=== PATIENT | female | born 2000 | race Caucasian/White ===

== ENCOUNTER 2022-01-18 00:15 | Day surgery (SDC) | payer BC, SELFPAY ==
[2022-01-16 12:00] VITALS: BMI 35.5
--- NOTE | 2022-01-17 12:41 | PM.HPGS ---
History of Present Illness History of Present Illness Consent: Risks, benefits, and alternatives have been discussed and questions answered. Patient agrees to proceed with procedure. Chief complaint: dysphagia Narrative: Chris Smalls is a 21 year old female with dysphagia for solid food. This has been going on for several years. Her father has a similar problem. She will have solid foods such as meat get caught in the mid chest and will take several minutes for it to finally pass. Review of Systems Review of Systems: All systems reviewed & are unremarkable except as noted in HPI and below PMFSH Past Medical History Medical History GERD (gastroesophageal reflux disease) Social History Social History Smoking status: Never smoker Second hand tobacco smoke exposure: No Alcohol intake: current Drinks per week: 1 Alcohol use details: socially Substance use: current Substance use type: does not use Last use: socially Living arrangements: with family Additional occupation/education comments: Dental Hygienist Gender identity (if verbalized by the patient): Female Sexual Orientation (if Verbalized by the Patient): Straight or Heterosexual Spiritual care concerns: No Meds Home Medications and Allergies Home Medications Medication Instructions Recorded Confirmed Type bupropion HCl 300 mg 24 hr tablet, 300 mg PO DAILY 11/30/21 01/18/22 History extended release mometasone-ammonium lactate 0.1 pkg topical 11/30/21 11/30/21 History %-12 % topical combo pack multivitamin 1 tablet PO DAILY 11/30/21 01/18/22 History etonogestrel 0.12 mg-ethinyl 1 vag ring vaginal ONCE #4 ea 12/14/21 01/18/22 Rx estradiol 0.015 mg/24 hr vaginal ring (NuvaRing) Allergies Allergy/AdvReac Type Severity Reaction Status Date / Time No Known Allergies Allergy Verified 01/18/22 06:59 Exam Const: General: alert Orientation/consciousness: patient oriented x3 Resp: Auscultation: clear to auscultation bilaterally Cardio: Rhythm: regular rhythm GI: GI Palp: Yes Soft to palpation and No Tenderness to palpation present (GI) Neuro: General: patient oriented x3 Assessment and Plan Assessment and plan (1) Dysphagia: Code(s): R13.10 - Dysphagia, unspecified Status: Acute Assessment and Plan: EGD with possible biopsy or dilatation or cautery.
[2022-01-18 07:00] VITALS: BP 123/74; PULSE 59; RESP 18; TEMP 36.2; O2SAT 98; BMI 35.3
[2022-01-18] MEDS: LACTATED RINGERS 1,000 ML 150 ML IV CONT (07:18)
--- NOTE | 2022-01-18 07:29 | WPDANESEPPF ---
Anes - Initial Pre Proc Eval Procedure: Operation Date: 01/18/22 08:00 Proposed Procedures p Esophagogastroduodenoscopy - Edward Staton MD Date/Time: 01/18/22 07:29 Surgeon: Edward Staton MD Pre Op Diagnosis: dysphagia Patient Data Age: 21 Gender: F Height: 1.73 m Weight: 105.4 kg Last Vital Signs Temp 97.2 F L 01/18/22 07:00 Pulse 59 L 01/18/22 07:00 Resp 18 01/18/22 07:00 BP 123/74 01/18/22 07:00 Pulse Ox 98 01/18/22 07:00 O2 Del Method Room Air 01/18/22 07:00 Allergies Allergy/AdvReac Type Severity Reaction Status Date / Time No Known Allergies Allergy Verified 01/18/22 06:59 Home Medications Medication Instructions Recorded Confirmed Type bupropion HCl 300 mg 24 hr tablet, 300 mg PO DAILY 11/30/21 01/18/22 History extended release mometasone-ammonium lactate 0.1 pkg topical 11/30/21 11/30/21 History %-12 % topical combo pack multivitamin 1 tablet PO DAILY 11/30/21 01/18/22 History etonogestrel 0.12 mg-ethinyl 1 vag ring vaginal ONCE #4 ea 12/14/21 01/18/22 Rx estradiol 0.015 mg/24 hr vaginal ring (NuvaRing) Patient hx anesthesia problems: none Family hx anesthesia problems: none Results Review: All pre-operative results and documents have been reviewed as part of the pre-operative evaluation. [facility] Past Medical History Medical History GERD (gastroesophageal reflux disease) Social History Social History (Updated 12/14/21 @ 10:14 by Alexa Sosa MA) Smoking status: Never smoker Second hand tobacco smoke exposure: No Alcohol intake: current Drinks per week: 1 Alcohol use details: socially Substance use: current Substance use type: does not use Last use: socially Living arrangements: with family Additional occupation/education comments: Dental Hygienist Gender identity (if verbalized by the patient): Female Sexual Orientation (if Verbalized by the Patient): Straight or Heterosexual Spiritual care concerns: No Anes - Eval Final PreProcedure Day of Procedure 01/18/22 07:29 Patient weight: obese Heart: regular rate and rhythm Lungs: clear to auscultation Airway: Mallampati scale class II Neurological: alert and oriented Last oral intake: >/= 8 hours ASA classification: II Emergent: no Anesthetic plan: proceed Anesthesia type and monitoring: general GIVS and standard monitoring Results Review: All pre-operative results and documents have been reviewed as part of the pre-operative evaluation. Informed Consent: The patient's anesthetic plan and its attendant risks and benefits were discussed with the patient/family/POA. Questions were solicited and answers provided to the satisfaction of the patient/family/POA.
[2022-01-18] MEDS: BENZOCAINE (*SP) 60 ML SPRAY CAN (HURRICAINE) 1 SPRAY MUCOUS MEM (07:51)
[2022-01-18 08:08] VITALS: BP 124/71; PULSE 69; RESP 23; O2SAT 99
[2022-01-18 08:18] VITALS: BP 117/65; PULSE 55; RESP 19; O2SAT 98
[2022-01-18 08:28] VITALS: BP 118/68; PULSE 52; RESP 16; O2SAT 98
== END 2022-01-18 08:34 | disposition home or self-care (01) ==
PROVIDERS: PCP Nurse Practitioner Family; Visit Provider Internal Medicine Gastroenterology
PROC: 0DJ08ZZ Inspection of Upper Intestinal Tract, Via Natural or Artificial Opening Endoscopic (ICD-10-PCS; CPT 43235; principal; 2022-01-18 08:00)
DX: R13.19 Other dysphagia (principal); K22.2 Esophageal obstruction; K26.9 Duodenal ulcer, unspecified as acute or chronic, without hemorrhage or perforation; K21.9 Gastro-esophageal reflux disease without esophagitis; E66.9 Obesity, unspecified; Z68.35 Body mass index [BMI] 35.0-35.9, adult
CPT/HCPCS: 43249; 43239; 87081; 88305; C1726; J2704; J7120

== ENCOUNTER 2022-04-11 00:04 | Day surgery (SDC) | payer BC, SELFPAY ==
[2022-02-08 13:43] VITALS: BMI 35.0
[2022-04-06 16:23] VITALS: BMI 35.0
--- NOTE | 2022-04-10 16:54 | PM.HPGS ---
History of Present Illness History of Present Illness Consent: Risks, benefits, and alternatives have been discussed and questions answered. Patient agrees to proceed with procedure. Chief complaint: dysphagia Narrative: Chris Smalls is a 21 year old female with dysphagia. 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 She returns now for treatment, dilatation of the stricture. Biopsies confirmed eosinophilic esophagitis, with 20 eosinophils per HPF. she is no longer having heartburn. Her dysphagia however persists. Review of Systems Review of Systems: All systems reviewed & are unremarkable except as noted in HPI and below PMFSH Past Medical History Medical History GERD (gastroesophageal reflux disease) Social History Social History Smoking status: Never smoker Second hand tobacco smoke exposure: No Alcohol intake: current Drinks per week: 1 Alcohol use details: socially Substance use: current Substance use type: marijuana Last use: 02-03-2022 Living arrangements: with friend(s) Additional occupation/education comments: Dental Hygienist Gender identity (if verbalized by the patient): Female Sexual Orientation (if Verbalized by the Patient): Straight or Heterosexual Spiritual care concerns: No Meds Home Medications and Allergies Home Medications Medication Instructions Recorded Confirmed Type bupropion HCl 300 mg 24 hr tablet, 300 mg PO DAILY 11/30/21 04/06/22 History extended release mometasone-ammonium lactate 0.1 1 pkg topical DAILY PRN eczema 11/30/21 04/06/22 History %-12 % topical combo pack multivitamin 1 tablet PO DAILY 11/30/21 04/06/22 History etonogestrel 0.12 mg-ethinyl 1 vag ring vaginal ONCE #4 ea 12/14/21 04/06/22 Rx estradiol 0.015 mg/24 hr vaginal ring (NuvaRing) pantoprazole 40 mg tablet,delayed 40 mg PO QAM #30 tabs 01/18/22 04/06/22 Rx release Allergies Allergy/AdvReac Type Severity Reaction Status Date / Time No Known Allergies Allergy Verified 04/11/22 11:13 Exam Const: General: alert Orientation/consciousness: patient oriented x3 Resp: Auscultation: clear to auscultation bilaterally Cardio: Rhythm: regular rhythm GI: GI Palp: Yes Soft to palpation and No Tenderness to palpation present (GI) Neuro: General: patient oriented x3 Assessment and Plan Assessment and plan (1) Dysphagia: Code(s): R13.10 - Dysphagia, unspecified Status: Acute Assessment and Plan: EGD with possible biopsy or dilatation or cautery.
[2022-04-11 11:19] VITALS: BP 129/80; PULSE 55; RESP 18; TEMP 36.4; O2SAT 98
[2022-04-11] MEDS: LACTATED RINGERS 1,000 ML 150 ML IV CONT (11:28)
--- NOTE | 2022-04-11 12:01 | WPDANESEPPF ---
Anes - Initial Pre Proc Eval Procedure: Operation Date: 04/11/22 12:30 Proposed Procedures p Esophagogastroduodenoscopy - Edward Staton MD Date/Time: 04/11/22 12:01 Surgeon: Edward Staton MD Pre Op Diagnosis: dysphagia Patient Data Age: 21 Gender: F Height: 1.73 m Weight: 106.9 kg Last Vital Signs Temp 97.6 F 04/11/22 11:19 Pulse 55 L 04/11/22 11:19 Resp 18 04/11/22 11:19 BP 129/80 04/11/22 11:19 Pulse Ox 98 04/11/22 11:19 O2 Del Method Room Air 04/11/22 11:19 Allergies Allergy/AdvReac Type Severity Reaction Status Date / Time No Known Allergies Allergy Verified 04/11/22 11:13 Home Medications Medication Instructions Recorded Confirmed Type bupropion HCl 300 mg 24 hr tablet, 300 mg PO DAILY 11/30/21 04/06/22 History extended release mometasone-ammonium lactate 0.1 1 pkg topical DAILY PRN eczema 11/30/21 04/06/22 History %-12 % topical combo pack multivitamin 1 tablet PO DAILY 11/30/21 04/06/22 History etonogestrel 0.12 mg-ethinyl 1 vag ring vaginal ONCE #4 ea 12/14/21 04/06/22 Rx estradiol 0.015 mg/24 hr vaginal ring (NuvaRing) pantoprazole 40 mg tablet,delayed 40 mg PO QAM #30 tabs 01/18/22 04/06/22 Rx release Patient hx anesthesia problems: none Family hx anesthesia problems: none Results Review: All pre-operative results and documents have been reviewed as part of the pre-operative evaluation. [facility] Past Medical History Medical History GERD (gastroesophageal reflux disease) Social History Social History Smoking status: Never smoker Second hand tobacco smoke exposure: No Alcohol intake: current Drinks per week: 1 Alcohol use details: socially Substance use: current Substance use type: marijuana Last use: 02-03-2022 Living arrangements: with friend(s) Additional occupation/education comments: Dental Hygienist Gender identity (if verbalized by the patient): Female Sexual Orientation (if Verbalized by the Patient): Straight or Heterosexual Spiritual care concerns: No Anes - Eval Final PreProcedure Day of Procedure 04/11/22 12:01 Patient weight: obese Heart: regular rate and rhythm Lungs: clear to auscultation Airway: Mallampati scale class II Neurological: alert and oriented Last oral intake: >/= 8 hours ASA classification: II Emergent: no Anesthetic plan: proceed Anesthesia type and monitoring: general GIVS and standard monitoring Results Review: All pre-operative results and documents have been reviewed as part of the pre-operative evaluation. Informed Consent: The patient's anesthetic plan and its attendant risks and benefits were discussed with the patient/family/POA. Questions were solicited and answers provided to the satisfaction of the patient/family/POA.
[2022-04-11 12:18] VITALS: BP 122/69; PULSE 63; RESP 16; O2SAT 100
[2022-04-11 12:28] VITALS: BP 127/70; PULSE 46; RESP 16; O2SAT 100
[2022-04-11 12:38] VITALS: BP 121/69; PULSE 48; RESP 16; O2SAT 100
== END 2022-04-11 12:53 | disposition home or self-care (01) ==
PROVIDERS: PCP Nurse Practitioner Family; Visit Provider Internal Medicine Gastroenterology
PROC: 0DJ08ZZ Inspection of Upper Intestinal Tract, Via Natural or Artificial Opening Endoscopic (ICD-10-PCS; CPT 43235; principal; 2022-04-11 12:30)
DX: K22.2 Esophageal obstruction (principal); K20.0 Eosinophilic esophagitis; F12.90 Cannabis use, unspecified, uncomplicated; E66.9 Obesity, unspecified; Z68.35 Body mass index [BMI] 35.0-35.9, adult
CPT/HCPCS: 43249; 88305; C1726; J2001; J2704; J7120